=== PATIENT | female | born 1990 | race Caucasian/White ===

== ENCOUNTER 2024-12-20 19:28 | Emergency (ER) | payer OTHER ==
[~2024-12-20] VITALS: Ht 167.6 cm; Wt 95.0 kg
[2024-12-20 19:39] VITALS: TEMP 37.7; O2SAT 100
[2024-12-20] MEDS ORDERED: KETOROLAC 15MG/ML VIAL IM ONE (20:30)
[2024-12-20] MEDS: ACETAMINOPHEN 500MG TABLET PO ONE (21:07)
[2024-12-20] MEDS ORDERED: LIDO-53 TP (22:22)
[2024-12-20] MEDS ORDERED: NAPR-1176 MT (22:22)
[2024-12-21 00:21] VITALS: BP 116/68; PULSE 64; RESP 13; O2SAT 100
== END 2024-12-21 00:22 | disposition home or self-care (01) ==
LOC: ER 19:28
DX: M25.551 Pain in right hip (principal); M25.511 Pain in right shoulder; R51.9 Headache, unspecified; M54.2 Cervicalgia; Z79.1 Long term (current) use of non-steroidal anti-inflammatories (NSAID); V89.2XXA Person injured in unspecified motor-vehicle accident, traffic, initial encounter; Y93.89 Activity, other specified; Y92.410 Unspecified street and highway as the place of occurrence of the external cause; Y99.8 Other external cause status
CPT/HCPCS: 73030; 73502; 81025; 99284